=== PATIENT | male | born 1955 | race Caucasian/White ===

== ENCOUNTER 2019-03-29 12:58 | Emergency (ER) | payer BC ==
--- NOTE | 2019-03-29 13:01 | Emergency Department Record ---
History of Present Illness - General Stated Complaint: DIZINESS,NAUSEA,VOMITING Time Seen by Provider: 03/29/19 13:00 Source: Patient Mode of Arrival: Ambulatory Limitations: No limitations - History of Present Illness Initial Comments: 63 yo male presents with 30 minutes of dizziness described as room spinning. He was sitting eating and developed abrupt sensation of the room spinning around him. It is better if still and worse if turning his head. No headache. No vision changes. No other weakness, numbness or coordination changes. No speech changes. No memory or hearing changes. No cough, chest pain or shortness of breath. A few weeks ago he had mild dizziness that resolved. MD Complaint: Dizziness -: Minutes(s) (30) Timing: Sudden onset Description: "Room spinning" History of Same: No History of Trauma: No Severity: Severe Improves With: Nothing Worsens With: Movement Associated Symptoms: Loss of appetite - [place] Coma Scale Eye Response: (4) Open spontaneously Motor Response: (6) Obeys commands Verbal Response: (5) Oriented [place] Total: 15 - Symptoms of Stroke Onset of Symptoms Time: 12:30 Symptoms of stroke: Dizziness - Related Data Home Medications Medication Instructions Recorded Confirmed Last Taken Amlodipine Besylate [Norvasc] 10 mg PO DAILY 03/29/19 03/29/19 03/29/19 10 mg Cetirizine HCl [Zyrtec] 10 mg PO DAILY 03/29/19 03/29/19 03/29/19 1 tab Cholecalciferol (Vitamin D3) 03/29/19 03/29/19 [Vitamin D3] Cholecalciferol (Vitamin D3) 1 cap PO DAILY 03/29/19 03/29/19 03/29/19 [Vitamin D3] Krill/Om-3/Dha/Epa/Phospho/Ast 1 cap PO DAILY 03/29/19 03/29/19 03/29/19 [Krill Oil 500 mg Softgel] 1 tab Losartan/Hydrochlorothiazide 1 tab PO DAILY 03/29/19 03/29/19 03/28/19 [Losartan-Hctz 100-25 mg Tab] 1 Melatonin 10 mg PO DAILY 03/29/19 03/29/19 03/28/19 10 mg Metoprolol Tartrate 100 mg PO DAILY 03/29/19 03/29/19 03/29/19 1 tab Mv-Mn/Folic Acid/Lutein/Rrc612 1 tab PO DAILY 03/29/19 03/29/19 03/29/19 [Mens Multivit High Potency Tab] 1 tab Testosterone [Androderm] 03/29/19 03/29/19 1 cap Testosterone [Androderm] 03/29/19 03/29/19 1 patch Testosterone [Androderm] 4 mg TOP DAILY 03/29/19 03/29/19 03/29/19 4mg Allergies Allergy/AdvReac Type Severity Reaction Status Date / Time No Known Drug Allergies Allergy Verified 03/29/19 13:35 Review of Systems Constitutional: Denies: Chills, Fever, Malaise, Weakness Eyes: Denies: Eye discharge, Eye pain, Photophobia, Vision change ENT: Denies: Congestion, Throat pain Respiratory: Denies: Cough, Dyspnea Cardiovascular: Denies: Chest pain, Syncope Endocrine: Denies: Fatigue Gastrointestinal: Reports: Nausea. Denies: Abdominal pain, Diarrhea, Vomiting Genitourinary: Denies: Dysuria, Frequency, Hematuria Musculoskeletal: Denies: Arthralgia, Back pain, Myalgia Skin: Denies: Bruising, Change in color, Rash Neurological: Reports: Vertigo. Denies: Abnormal gait, Confusion, Headache, Numbness, Paresthesias, Seizure, Tingling, Tremors, Weakness Psychiatric: Denies: Anxiety Hematological/Lymphatic: Denies: Easy bleeding, Easy bruising Past Medical History - SOCIAL HISTORY Smoking Status: Never smoker - RESPIRATORY Hx Respiratory Disorders: Yes Hx Sleep Apnea: Yes Hx of CPAP: Yes - CARDIOVASCULAR Hx Cardio Disorders: Yes Hx Hypertension: Yes - NEURO Comment:: MOHEGAN left ear-wears hearing aide - GI Hx Reflux: Yes (Rx pepcid) Hx of Polyps: Yes - Hx Genitourinary Disorders: Yes Hx Kidney Stones: Yes - ENDOCRINE Hx Endocrine Disorders: Yes Hx Thyroid Disease: Yes ("slow") - MUSCULOSKELETAL Hx Musculoskeletal Disorders: Yes Hx Arthritis: Yes (osteoarthritis left knee) - PSYCH Hx Psych Problems: No - HEMATOLOGY/ONCOLOGY Hx Hematology/Oncology Disorders: No Family Medical History Hx Cancer: Brother/Sister Hx Heart Disease: Mother, Brother/Sister Hx Stroke: Father Physical Exam - General General Appearance: Alert, Oriented x3, Cooperative, No acute distress Limitations: No limitations - Head Head exam: Atraumatic, Normal inspection - Eye Eye exam: Normal appearance, PERRL, Nystagmus (significant nystagmus most pronounced to the right) Pupils: Normal accommodation. negative: Irregular, Unequal - ENT ENT exam: Normal exam, Mucous membranes moist, TM's normal bilaterally Ear exam: Normal external inspection Nasal Exam: Normal inspection Mouth exam: Normal external inspection Teeth exam: Normal inspection Throat exam: Normal inspection - Neck Neck exam: Normal inspection, Full ROM - Respiratory Respiratory exam: Normal lung sounds bilaterally. negative: Respiratory distress - Cardiovascular Cardiovascular Exam: Regular rate, Normal rhythm, Normal heart sounds Peripheral Pulses: 2+: Radial (R), Radial (L) - GI/Abdominal GI/Abdominal exam: Soft. negative: Tenderness - Rectal Rectal exam: Deferred - exam: Deferred - Extremities Extremities exam: Normal inspection. negative: Pedal edema, Tenderness - Back Back exam: Denies: CVA tenderness (R), CVA tenderness (L) - Neurological Neurological exam: Alert, CN II-XII intact, Normal gait, Oriented X3, Other (No PND, Normal FTN, no ataxia, Normal IMELDA, Normal FTN). negative: Abnormal gait, Altered, Motor sensory deficit - Psychiatric Psychiatric exam: Normal affect, Normal mood. negative: Agitated, Anxious - Skin Skin exam: Diaphoretic Course - Reevaluation(s) Reevaluation #1: 03/29/19 13:11 The patient had sudden symptoms with turning of the head He is better if still and it fatigues Lateral nystagmus noted to the right No other reproducible neurologic symptoms associated 03/29/19 13:25 EKG #1: 13:15 Rate: 61 Rhythm: sinus [place]: normal Intervals: normal ST segments: normal Normal EKG 03/29/19 13:51 The CBC is normal The CMP is normal 03/29/19 13:57 The patient reports some improvement. He is comfortable unless he turns his head. 03/29/19 14:23 No prior imaging in [facility] [place] was reviewed. 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 The symptoms are greatly improved with very mild residual feeling of spinning if he moves his head. The nystagmus has nearly resolved. 03/29/19 14:54 The HCT is normal without any acute process. 03/29/19 15:12 The dizziness and room spinning again returns with close to the intensity of the room spinning. He now has nystagmus to the left gaze. Since the symptoms are returning I will discuss with neurology. 03/29/19 15:[address] King of neurology. Given the return of symptoms he recommends ED to ED transfer. Dr Daily of the ED accepts ED to ED. Medical Decision Making - Lab Data Result diagrams: 03/29/19 13:10 03/29/19 13:10 Disposition Disposition: Discharge Clinical Impression: Vertigo Disposition: Home, Self-Care Transfer To: [facility] Reason For Transfer: Dizziness Accepting Physician: Killian Time Discussed w/Accepting Physician: 15:21 Condition: (1) Good Instructions: Vertigo (ED) Forms: Patient Portal Access Time of Disposition: 15:21 Quality - Quality Measures Quality Measures: N/A - Blood Pressure Screening Does Patient Have Any of the Following: No Blood Pressure Classification: Pre-Hypertensive BP Reading Systolic Measurement: 183 Diastolic Measurement: 89 Screening for High Blood Pressure: < Pre-Hypertensive BP, F/U Documented > [G8950] Pre-Hypertensive Follow-up Interventions: Referral to alternative/primary care provider.
[2019-03-29] MEDS ORDERED: MECLIZINE 25 MG TABLET PO ONE (13:05)
[2019-03-29] MEDS ORDERED: ONDANSETRON HCL IV 4 MG/2 ML VIAL IVP ONE (13:05)
[2019-03-29] MEDS ORDERED: 0.9 % SODIUM CHLORIDE 1,000 ML BAG IV ONE (13:05)
[2019-03-29 13:17] LABS: ABSOLUTE NEUTROPHIL COUNT 5.69; BASO % 0.4 % (0-6); EOS % 3.7 % (0-6); GRAN % 55.3 % (47-80); HEMATOCRIT 45.9 % (42.0-52.0); HEMOGLOBIN 16.1 gm/dl (14.0-18.0); LYMPH % 28.4 % (16-45); MEAN CELL VOLUME 86.4 fl (81-97); MEAN CORPUSCULAR HEMOGLOBIN 30.3 pg (27-33); MEAN CORPUSCULAR HGB CONC 35.1 g/dl (32-36); MEAN PLATELET VOLUME 9.1 fl (7.4-10.4); MONO % 12.2 % (0-9); PLATELET COUNT 369 K/uL (130-400); RED BLOOD COUNT 5.31 M/uL (4.40-5.70); WHITE BLOOD COUNT W/O DIFF 10.3 K/uL (4.2-12.2)
[2019-03-29 13:32] LABS: BLOOD UREA NITROGEN 13 mg/dL (8-23); CREATININE 0.7 mg/dL (0.7-1.2); EST GLOMERULAR FILTRATION RATE > 60 mL/min
[2019-03-29 13:33] LABS: TOTAL PROTEIN 7.3 g/dL (6.6-8.7)
[2019-03-29 13:35] LABS: GLUCOSE,RANDOM 126 mg/dL (74-109)
[2019-03-29 13:38] LABS: ALB/GLOB RATIO 1.8 (1.1-1.8); ALBUMIN 4.7 g/dL (4.0-5.0); ALKALINE PHOSPHATASE 55 U/L (40-129); ALT/SGPT 31 U/L (<41); AST/SGOT 25 U/L (10.0-50.0)
--- NOTE | 2019-03-29 14:32 | CT SCAN REPORT ---
EXAMINATION: CT Head without IV Contrast EXAM DATE: 03/29/2019 2:23 PM TECHNIQUE: Standard protocol CT images of the head were obtained without intravenous contrast. Epps l and sagittal reconstructed images were created. INDICATION: Vertigo COMPARISON: MRI brain 05/17/2012 HAND DOMINANCE: Unknown. ENCOUNTER: Not applicable FINDINGS: 1. No intracranial mass effect, shift of midline structures, intra-axial or extra-axial hemorrhage, o r other extra-axial fluid collections. 2. Brain volume and ventricular size are appropriate for patient's stated age. No ventricular outflow obstruction. 3. Page-white matter differentiation is preserved. No sulcal effacement. No suspicious areas of alter ed attenuation. Mild burden of supratentorial white matter hypodensity. 4. Midline structures and craniocervical junction are unremarkable. 5. Intracranial atherosclerotic calcifications are present. 6. No depressed or widely calvarial fractures. No aggressive calvarial lesions. 7. Visualized paranasal sinuses and temporal bone structures are well aerated. Unremarkable appearanc e of the orbital compartments. IMPRESSION: No acute intracranial abnormality to the limits of noncontrast CT technique. Consider further evaluat ion with MRI, as clinically warranted. Dictated by: Christine Rodrigues MD on 03/29/2019 2:28 PM. .
== END 2019-03-29 15:39 | disposition home or self-care (01) ==
LOC: ER 12:58
DX: R42 Dizziness and giddiness (principal); R11.2 Nausea with vomiting, unspecified; I10 Essential (primary) hypertension
CPT/HCPCS: 70450; 80053; 85025; 93005; 93010; 96361; 96374; 99285; J2405; J7030